=== PATIENT | male | born 2000 | race Caucasian/White ===

== ENCOUNTER 2023-12-17 13:32 | Emergency (ER) | payer OTHER, SELFPAY ==
[2023-12-17 13:48] VITALS: BP 121/83; PULSE 84; RESP 16; TEMP 36.4; O2SAT 98
--- NOTE | 2023-12-17 13:59 | ED.NAVMDI ---
HPI - Nausea/Vomiting/Diarrhea General Chief complaint: Nausea/Vomiting/Diarrhea Stated complaint: Stomach Pain, Diarrhea,Nausea,Headache Time Seen by Provider: 12/17/23 13:50 Source: patient and RN notes reviewed Mode of arrival: ambulatory Limitations: no limitations History of Present Illness HPI Narrative: Patient presents today complaining of a 3 day history of abdominal cramping, headache, nausea, diarrhea, fatigue and chills. He had some vomiting on day of onset of symptoms, but none since then. Denies fever, blood or mucus in the stool. He has tried Pepto, ibuprofen, and Imodium with some relief with the Imodium. He typically is having 5-6 episodes of watery diarrhea per day, 3 so far today. The abdominal cramping is worse just prior to a bowel movement, then slightly improves. 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 Related Data Allergies Allergy/AdvReac Type Severity Reaction Status Date / Time No Known Allergies Allergy Verified 12/17/23 13:44 Review of Systems Review of Systems: CONSTITUTIONAL: Denies body aches, fever, or sweats.+ fatigue, chills EYES: Denies visual changes, redness, or discharge. ENT: Denies rhinorrhea, congestion, sore throat, or otalgia. CARDIOVASCULAR: Denies chest pain, palpitations, or edema. RESPIRATORY: Denies cough or dyspnea. GASTROINTESTINAL: + abdominal cramping, nausea, vomiting, diarrhea GENITOURINARY: Denies dysuria or hematuria. SKIN: Denies rash, itching, or wounds. MUSCULOSKELETAL: Denies back pain, joint pain, or myalgia. NEUROLOGIC: Denies numbness, tingling, or weakness.+ headache PSYCH: Denies depression or anxiety. PMFSH Comments At time of signature, I have reviewed and agree with nursing past medical, surgical, social and family history unless otherwise noted. Please see nursing chart for further information. There is no relevant family history pertinent to the presenting complaint Exam Narrative: GENERAL: Mildly ill-appearing, well-nourished, and in no acute distress. HEAD: Normocephalic, atraumatic. EYES: EOMI. No redness or drainage. Conjunctivae normal. ENT: Mucous membranes pink and moist. Throat normal. Uvula midline. NECK: Normal AROM. Supple. No lymphadenopathy. CHEST: No respiratory distress. Clear to auscultation. HEART: Regular rate and rhythm. No murmur appreciated. ABDOMEN: Soft, nontender, nondistended, normal active bowel sounds. EXTREMITIES: Normal range of motion. No edema. SKIN: Warm, dry, no rash. Capillary refill normal. Normal skin turgor. NEURO: No focal deficits. Alert and oriented x3. Gait steady. PSYCH: Normal affect. No signs of depression or anxiety. Course Course Level of Care: Express Care Visit Vital Signs Vital signs: Vital Signs Temperature 97.6 F 12/17/23 13:48 Pulse Rate 84 12/17/23 13:48 Respiratory Rate 16 12/17/23 13:48 Blood Pressure 121/83 12/17/23 13:48 Pulse Oximetry 98 12/17/23 13:48 Temperature 97.6 F 12/17/23 13:48 Pulse Rate 84 12/17/23 13:48 Respiratory Rate 16 12/17/23 13:48 Blood Pressure 121/83 12/17/23 13:48 Pulse Oximetry 98 12/17/23 13:48 Reviewed MDM - Nausea/Vomiting/Diarrhea MDM Narrative Medical decision making narrative: Recommend continue rehydration and rest. Rx for Zofran sent to pharmacy. F/u with PCP next week for further evaluation if symptoms are not improving. Anticipatory guidance given. Differential Diagnosis Differential diagnosis: Likely food poisoning, gastroenteritis and other (Viral illness) Critical Care Time Critical Care Time Critical Care Time: No Discharge Plan Discharge Clinical Impression: Nausea vomiting and diarrhea Patient Disposition: Home, Self-Care Condition: Stable Instructions: Acute Nausea and Vomiting (ED), Acute Diarrhea (ED) Additional Instructions: Please take the Zofran as prescr
== END 2023-12-17 14:16 | disposition home or self-care (01) ==
PROVIDERS: Emergency Provider Nurse Practitioner
DX: R11.2 Nausea with vomiting, unspecified (principal); R19.7 Diarrhea, unspecified; M06.9 Rheumatoid arthritis, unspecified
CPT/HCPCS: 99213; G0463